=== PATIENT | female | born 1985 | race Caucasian/White ===

== ENCOUNTER 2018-01-15 07:53 | Inpatient (IN) | payer OTHER ==
--- NOTE | 2018-01-15 09:38 | HP ---
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 Pertinent Past Surgical History: None Pertinent Family History: See Records Family History Comment: MGM: lung cancer - Antepartal Records Antepartal Records: Reviewed, Uncomplicated Review of Systems Constitutional: Uncomfortable - with UCs CV Complaint: No Respiratory: Shortness of Breath: No Gastrointestinal: No Nausea/Vomiting, Normal Bowel Movement Genitourinary: Leaking Fluid - 02:15 Musculoskeletal: Contractions Neurological: No Headache, No Visual Changes Movement: Normal Exam Allergies/Adverse Reactions: Allergies No Known Allergies Allergy (Verified 01/15/18 09:37) BP: 127/76 HR: 82 RR: 20 T: 98.2 O2 sat: 100% on RA Lab Values - Entire Visit: Laboratory Tests 01/15/18 08:34 Vag Amniotic Fld Detect Positive - Measurements Height: 5 ft 0.25 in Weight: 202 lb Body Mass Index (BMI): 39.1 Pre- Weight: 155 lb - Exam Abdomen: No Upper Quadrant Pain Breast: Breast Exam Deferred CVA: No CVA Tenderness Extremities: Edema - Bilateral 1+ pitting edema in lower extremities Heart: Normal Rhythm/Heart Sounds HEENT: No Significant Findings Lungs: Clear Bilaterally Rectal: Rectal Exam Deferred Reflexes: DTR 2+ Thyroid: No Thyromegaly - Abdominal Exam Abdomen Exam: Non-Tender, Fundal Height Consistent with Dates - Ultrasound/Biophysical Profile Ultrasound Status: Not Done Targeted Exam Findings See L&D Outpatient Visit Provider Note for Findings: N/A Estimated Weight: 7.5 lbs by Bartolo Cervical Exam: 1cm Effacement: 90% Station: -3 Presenting Part: Vertex Membrane Status: SROM Amniotic Fluid Evaluation: Gross Rupture Sterile Speculum Exam: Not done Bleeding/Discharge: Leaking clear fluid EFM Findings - External Monitor Findings Baseline Heart Rate: 135 External Monitor Findings: Accelerations Present, No Pattern of Variable or Late Decelerations, Variability Moderate, Baseline Stable External Monitor Findings Comment: Some head compression evident with UCs but no pattern of lates or variables Contractions: Regular, Mild, Moderate, < 45 Seconds, 45-90 Seconds Assessment/Plan - Reason for Visit Reason for Visit: Pt presents with SROM in early labor - Obstetrical Risk Factors Risk Factors Comment: No risk factors present - Plan Plan: Observe, Early Labor, Induction - Consider augmentation PRN in presence of SROM Plan Comment: Admit. Place IV as pt reports will want labor epidural with increased discomfort. Dr. Rogers in house, aware of pt presence and condition. Agrees with plan - Date/Time of Admission Date of Admission: 01/15/18 Time of Admission: 09:10
[2018-01-15 10:54] LABS: ABS Basophils 0.1 10^3/ul (0-0.2); ABS Eosinophils 0.1 10^3/ul (0-0.6); ABS Neutrophils 13.6 10^3/ul (1.5-7.7); ABS Nucleated RBC 0 10^3/ul; Eosinophil % 0.5 % (0-6); Hematocrit 38 % (35-47); Hemoglobin 13.2 g/dl (12.0-16.0); Lymphocyte % 11.8 % (25-47); Mean Corpuscular HGB Conc 35 g/dl (31-36); Mean Corpuscular Hemoglobin 33 pg (27-31); Mean Corpuscular Volume 94 fL (80-97); Mean Platelet Volume 8.8 um3 (7.4-10.4); Nucleated Red Blood Cells % 0; Platelet Count 215 10^3/ul (150-450); Red Blood Count 4.02 10^6/ul (4.00-5.40); Red Cell Distribution Width 14 % (10.5-15); White Blood Count 16.8 10^3/ul (3.5-10.8)
[2018-01-15] MEDS ORDERED: OBEPIDURAL* 250 ML EPIDURAL ONE (13:49)
[2018-01-15] MEDS ORDERED: fentaNYL* 50 MCG/ML 2 ML VIAL (100 MCG VIAL) ONE (13:49)
[2018-01-15] MEDS ORDERED: Sodium Citrate/Citric Acid* 15 ML UDC PO PRN (14:31)
[2018-01-15] MEDS ORDERED: Phenylephrine IV* 40 MCG/ML 10 ML SYRINGE IV PUSH PRN ×2 (14:31)
[2018-01-15] MEDS ORDERED: Famotidine TAB* 20 MG PO PRN (14:31)
[2018-01-15] MEDS ORDERED: OBEPIDURAL* 250 ML EPIDURAL SCH (15:00)
[2018-01-15] MEDS ORDERED: Oxytocin in LR* 20 UNITS/1,000 ML BAG IVPB ONE (16:34)
[2018-01-15] MEDS ORDERED: Oxytocin in LR* 20 UNITS/1,000 ML BAG IVPB SCH (17:00)
[2018-01-15] MEDS ORDERED: Acetaminophen TAB* 325 MG PO PRN (23:51)
[2018-01-15] MEDS ORDERED: Acetaminophen TAB* 325 MG ONE (23:51)
[2018-01-16] MEDS: Ampicillin IV* 2 GM in NS 0.9% 100 ML* 100 ML IVPB SCH ×2 (00:42→06:53)
[2018-01-16] MEDS ORDERED: Glycerin ADULT SUPP PR PRN (03:50)
[2018-01-16] MEDS ORDERED: RHO D Immune Globulin (HUMAN)* 300 MCG = 1,500 I.U. INJ IM ONE (03:50)
[2018-01-16] MEDS ORDERED: Witch Hazel PAD* JAR TOPICAL PRN (03:50)
[2018-01-16] MEDS ORDERED: Acetaminophen TAB* 325 MG PO PRN (03:52)
[2018-01-16] MEDS ORDERED: Oxytocin in LR* 20 UNITS/1,000 ML BAG IVPB SCH (04:00)
--- NOTE | 2018-01-16 04:06 | PROCNOTE ---
[facility] OB: Delivery Note - Nursery Level of Nursery: Regular/Bedside - Perineum Perineal Injury: Perineal Laceration - 3rd degree Perineal Repair: Dr. Rogers - Events Delivery Events of Note: Pitocin During Labor, Chorio in Labor, Maternal Temperature during Labor - Resolved with Tylenol, Full Course of Antibiotics - Ampicillin and Gentamicin for chorio in labor, ROM > 24 Hours Delivery Events of Note Comment: Nuchal cord x 1. [place] somersaulted through. Compound delivery with hand by face - Additional Delivery Notes Additional Delivery Notes: Pt admitted with spontaneous rupture of membranes to clear fluid. Labor epidural and IV pitocin augmentation led to onset active labor. Labor complicated by chorioamnionitis. Tmax 101.8 resolved with Tylenol and IV ampicillin and gentamicin. Length of labor 18 hours, 40 min. Pushed x 39 min. liveborn male. Slow, controlled delivery of head. IMELDA. Compound delivery with hand by face. Shoulders followed easily. Nuchal cord x 1 reduced after delivery. vigorous with spontaneous cry. HR>110bpm. Delivered to maternal abdomen. Apgars 8/9. Cord clamped x 2 and cut when pulsations ceased. Spontaneous delivery intact placenta. Membranes complete. Fundus firm to massage with IV pitocin infusing, minimal bleeding noted. Close inspection of perineum showed a 3rd degree laceration. Dr. Rogers to bedside for evaluation and repair. See MD note. At time of note mother and in stable condition. Planning to breast feed.
[2018-01-16] MEDS: Dibucaine 1% 28.35 GM TUBE PR PRN (05:51)
[2018-01-16] MEDS: Ibuprofen TAB* 600 MG PO PRN ×3 (05:51→21:04)
[2018-01-16] MEDS ORDERED: Levothyroxine TAB* 75 MCG TAB PO SCH (06:00)
[2018-01-16] MEDS ORDERED: Gentamicin ADULT (*) 90 MG in NS 0.9% 100 ML* 100 ML IVPB SCH (09:00)
[2018-01-16] MEDS: Docusate CAP* 100 MG PO SCH ×3 (10:53→21:04)
[2018-01-16] MEDS: Levothyroxine TAB* 25 MCG TAB PO SCH (15:08)
--- NOTE | 2018-01-16 15:22 | BRIEFOPN ---
Brief Operative Note - Surgery Procedures: Called to consult on pt after uncomplicated due to significant perineal laceration. On inspection, full thickness 3rd degree lac present, did not involve rectal mucosa. Rectal exam confirmed. 1% lidocaine injected. End to end sphincteroplasty performed with four 2-0 Vicryl stitches. Deep sulcus laceration repaired with 3-0 Vicryl. Remaineder of 2nd degree portion and skin closed with 3-0 Vicryl rapide with good reapproximation. Rectal exam after closure without any suture palpated.
[2018-01-17] MEDS ORDERED: Gentamicin ADULT (*) 90 MG in NS 0.9% 100 ML* 100 ML IVPB SCH (01:00)
[2018-01-17 06:26] LABS: ABS Basophils 0.1 10^3/ul (0-0.2); ABS Eosinophils 0.2 10^3/ul (0-0.6); ABS Lymphocytes 3.7 10^3/ul (1.0-4.8); ABS Monocytes 1.2 10^3/ul (0-0.8); ABS Neutrophils 11.6 10^3/ul (1.5-7.7); ABS Nucleated RBC 0 10^3/ul; Eosinophil % 1.2 % (0-6); Hematocrit 30 % (35-47); Hemoglobin 10.2 g/dl (12.0-16.0); Lymphocyte % 22.1 % (25-47); Mean Corpuscular HGB Conc 34 g/dl (31-36); Mean Corpuscular Hemoglobin 32 pg (27-31); Mean Corpuscular Volume 95 fL (80-97); Mean Platelet Volume 8.4 um3 (7.4-10.4); Nucleated Red Blood Cells % 0; Platelet Count 213 10^3/ul (150-450); Red Blood Count 3.17 10^6/ul (4.00-5.40); Red Cell Distribution Width 14 % (10.5-15); White Blood Count 16.9 10^3/ul (3.5-10.8)
[2018-01-17] MEDS: Dibucaine 1% 28.35 GM TUBE PR PRN ×2 (06:32→06:41)
[2018-01-17] MEDS: Ibuprofen TAB* 600 MG PO PRN ×3 (06:32→18:44)
[2018-01-17] MEDS: Levothyroxine TAB* 25 MCG TAB PO SCH (06:32)
[2018-01-17] MEDS ORDERED: Ferrous Gluconate TAB* 324 MG TAB PO SCH (09:00)
[2018-01-17] MEDS: Docusate CAP* 100 MG PO SCH ×3 (10:06→20:49)
[2018-01-18] MEDS: Ibuprofen TAB* 600 MG PO PRN ×2 (00:23→06:22)
[2018-01-18] MEDS: Levothyroxine TAB* 25 MCG TAB PO SCH (06:22)
[2018-01-18] MEDS: Simethicone TAB* 80 MG TAB.CHEW PO SCH (07:20)
[2018-01-18 07:39] VITALS: BP 108/63
[2018-01-18] MEDS: Docusate CAP* 100 MG PO SCH (08:25)
== END 2018-01-18 11:00 | disposition home or self-care (01) | DRG 542 ==
LOC: MCHOBOUT 07:53 → MCHOB 09:08
PROVIDERS: ADMIT Midwife; ATTEND Midwife
PROC: 10E0XZZ Delivery of Products of Conception, External Approach (ICD-10-PCS; principal; 2018-01-16)
PROC: 0DQR0ZZ Repair Anal Sphincter, Open Approach (ICD-10-PCS; 2018-01-16)
DX: O42.02 Full-term premature rupture of membranes, onset of labor within 24 hours of rupture (principal); O75.2 Pyrexia during labor, not elsewhere classified; O41.1230 Chorioamnionitis, third trimester, not applicable or unspecified; O70.20 Third degree perineal laceration during delivery, unspecified; O99.284 Endocrine, nutritional and metabolic diseases complicating childbirth; E03.9 Hypothyroidism, unspecified; O69.81X0 Labor and delivery complicated by cord around neck, without compression, not applicable or unspecified; O32.6XX0 Maternal care for compound presentation, not applicable or unspecified; Z3A.38 38 weeks gestation of pregnancy; Z37.0 Single live birth
CPT/HCPCS: 36415; 84112; 85025; 86850; 86900; 86901; 88307; A9270-GY; J0290; J1580; J3010